=== PATIENT | male | born 1960 | race Caucasian/White ===

== ENCOUNTER 2018-06-27 16:17 | Emergency (ER) | payer OTHER ==
[~2018-06-27] VITALS: Ht 177.8 cm; Wt 79.4 kg
[2018-06-27 16:25] VITALS: Ht 177.8 cm; Wt 79.4 kg
[2018-06-27 18:15] LABS: BASOPHIL % 0.5 % (0-2); PLATELET COUNT 273 x10^3mcL (130-400)
[2018-06-27 18:27] LABS: UA SPECIFIC GRAVITY 1.025 (1.005-1.035); microscopic required? YES; urine erythrocyte TRACE (NEGATIVE)
[2018-06-27 18:36] LABS: CALCIUM 8.9 mg/dL (8.5-10.1); CARBON DIOXIDE 25.2 mmol/L (21-32); CHLORIDE SERUM 103 mmol/L (98-107); CREATININE SERUM 0.7 mg/dL (0.7-1.3); GFR1 > 60 mL/min; GLUCOSE SERUM 88 mg/dL (74-106); POTASSIUM SERUM 3.9 mmol/L (3.5-5.1); SODIUM SERUM 135 mmol/L (136-145)
[2018-06-27 18:40] LABS: AMPHETAMINE QUAL UR NONE DETECTED (See below)
[2018-06-27 18:49] LABS: ALBUMIN 4.1 g/dL (3.4-5.0); ALKALINE PHOSPHATASE 79 U/L (46-116); ALT/SGPT 30 U/L (16-63); AST/SGOT 23 U/L (15-37); BILIRUBIN TOTAL 0.69 mg/dL (0.20-1.00); FREE T4 0.95 ng/dL (0.76-1.46); TOTAL PROTEIN, SERUM 7.8 g/dL (6.4-8.2)
[2018-06-27 20:04] VITALS: BP 159/102
== END 2018-06-27 20:04 | disposition home or self-care (01) ==
LOC: ED 16:17
PROVIDERS: Emergency Medicine
DX: M25.50 Pain in unspecified joint (principal); R51 Headache; R53.81 Other malaise; E16.2 Hypoglycemia, unspecified; H53.149 Visual discomfort, unspecified; H93.19 Tinnitus, unspecified ear; R11.0 Nausea
CPT/HCPCS: 36415; 84439